=== PATIENT | female | born 1970 | race Caucasian/White ===

== ENCOUNTER 2019-11-21 14:05 | Emergency (ER) | payer OTHER, SELFPAY | END 2019-11-21 14:27 | disposition home or self-care (01) | PROVIDERS: Emergency Provider Family Medicine | DX: J06.9 Acute upper respiratory infection, unspecified (principal) | CPT/HCPCS: 99213; G0463 ==

== ENCOUNTER 2019-12-11 09:35 | Emergency (ER) | payer OTHER, SELFPAY ==
[2019-12-11 09:45] VITALS: BP 135/81; PULSE 79; RESP 20; TEMP 36.9; O2SAT 100
--- NOTE | 2019-12-11 10:12 | ED.URI ---
HPI - URI/Sore Throat General Chief Complaint: Upper Respiratory Infection Stated Complaint: cough/rib pain Time Seen by Provider: 12/11/19 10:12 Source: patient and RN notes reviewed History of Present Illness HPI Narrative: Patient is a 49-year-old female that presents the urgent care with complaints of cough and left rib pain. Patient states is been ongoing since October. Patient states that she was seen for viral bronchitis and given Augmentin. Patient states that she did not take the Augmentin because she has difficulty swallowing pills and she knows that antibiotics do not treat a virus . Patient states it is worsened on Sunday with a left rib pain due to excessive coughing. Patient also reports of some right ear pain. States that she has had some low-grade fevers and has been using cold sinus medication [id number] as well as Advil. Patient denies any wheezing or shortness of breath. No other acute complaints. No acute distress noted. Patient read the plan of care. Related Data Allergies Allergy/AdvReac Type Severity Reaction Status Date / Time No Known Allergies Allergy Verified 12/11/19 09:45 Review of Systems Review of Systems: Narrative: CONSTITUTIONAL: Denies fever, chills, or sweats. EYES: Denies visual changes, redness, or discharge. ENT: Reports of left otalgia CARDIOVASCULAR: Denies chest pain, palpitations, or edema. RESPIRATORY: Reports of nonproductive cough without dyspnea or wheezing GASTROINTESTINAL: Denies abdominal pain, nausea, vomiting, or diarrhea. GENITOURINARY: Denies dysuria or hematuria. SKIN: Denies rash or itching. MUSCULOSKELETAL: Denies back pain, joint pain, or myalgia. NEUROLOGIC: Denies headache, numbness, or weakness. All other systems reviewed are negative, except as documented in HPI. PMFSH Comments At the time of my signature, I reviewed and agree with the nursing past medical, surgical, social, and family history. There is no relevant family history pertinent to the patient complaint. Exam Narrative: Exam Narrative: GENERAL: This is a well-nourished, well-developed patient, in no apparent distress. HEAD: normocephalic, atraumatic. EYES: PERRL. Sclera clear/white. Vision is grossly intact. EARS: External ears normal, auditory canals clear and without drainage, mild fluid noted behind right TM without otitis, left TMs normal without perforation. Hearing grossly intact. NOSE: External nose normal with no obvious nasal discharge, nares without redness, clear rhinorrhea. THROAT: Mucous membranes moist, posterior pharynx clear. Mild postnasal drainage NECK: Neck supple CARDIOVASCULAR: Regular rate and rhythm without murmurs, gallops, or rubs. RESPIRATORY: Clear to auscultation. Slightly diminished right lower lobe. No wheezes, rales, or rhonchi. SKIN: warm, intact with no suspicious lesions or rash, good texture and turgor. NEURO: awake, alert, and oriented to person, place and time. There were no obvious focal neurologic abnormalities. EXTREMITIES: No clubbing, cyanosis, or edema. Course Vital Signs Vital signs: Vital Signs Temperature 98.5 F 12/11/19 09:45 Pulse Rate 79 12/11/19 09:45 Respiratory Rate 20 12/11/19 09:45 Blood Pressure 135/81 12/11/19 09:45 Pulse Oximetry 100 12/11/19 09:45 Temperature 98.5 F 12/11/19 09:45 Pulse Rate 79 12/11/19 09:45 Respiratory Rate 20 12/11/19 09:45 Blood Pressure 135/81 12/11/19 09:45 Pulse Oximetry 100 12/11/19 09:45 Reviewed MDM - URI/Sore Throat MDM Narrative Medical decision making narrative: Advised the patient to complete steroid regimen as prescribed. Use cough medication at night for cough. Medication will make you drowsy and I did not suggest using it during the day. Use inhaler as needed for shortness of breath and prior to bedtime. Use Claritin and Flonase [id number] for ear pain and postnasal drainage. If you develop any increase in symptoms associated with high fevers, p
== END 2019-12-11 10:25 | disposition home or self-care (01) ==
PROVIDERS: Emergency Provider Nurse Practitioner Family
DX: J40 Bronchitis, not specified as acute or chronic (principal)
CPT/HCPCS: 99213; G0463